=== PATIENT | female | born 1965 | race Caucasian/White ===

== ENCOUNTER 2020-09-12 17:18 | Emergency (ER) | payer BC ==
[~2020-09-12] VITALS: Ht 162.6 cm; Wt 61.4 kg
[~2020-09-12 17:18] MED LIST: ALD50T PO; BUM1T PO; CYCL-1 PO; LACT10SO7 PO; NADO20TA4 PO; OMEP-84 PO; OXYC-145 PO; RIFA550T PO; TRAM50TA2 PO; TRAZ50TA54 PO
== END 2020-09-12 17:44 | disposition home or self-care (01) ==
LOC: ER 17:18
DX: R51.9 Headache, unspecified (principal); R05 Cough; R09.89 Other specified symptoms and signs involving the circulatory and respiratory systems; Z20.828 Contact with and (suspected) exposure to other viral communicable diseases; D84.9 Immunodeficiency, unspecified; F15.90 Other stimulant use, unspecified, uncomplicated; Z86.19 Personal history of other infectious and parasitic diseases; Z98.890 Other specified postprocedural states; Z88.8 Allergy status to other drugs, medicaments and biological substances; Z88.2 Allergy status to sulfonamides; Z79.899 Other long term (current) drug therapy
CPT/HCPCS: 36415; 99282